=== PATIENT | female | born 1975 | race Caucasian/White ===

== ENCOUNTER → 2017-01-30 | Outpatient (CLI) | payer BC | LOC: MC.RAD 01-23 07:30 | DX: N63 Unspecified lump in breast (principal) ==

== ENCOUNTER → 2019-01-14 | Outpatient (CLI) | payer BC | LOC: COL.RAD 14:03 | DX: E04.9 Nontoxic goiter, unspecified (principal) ==

== ENCOUNTER → 2019-12-21 | Outpatient (CLI) | payer BC | LOC: MC.RAD 11:42 | DX: Z12.31 Encounter for screening mammogram for malignant neoplasm of breast (principal) ==

== ENCOUNTER → 2022-02-26 | Outpatient (CLI) | payer BC | LOC: MC.RAD 08:22 | DX: Z12.31 Encounter for screening mammogram for malignant neoplasm of breast (principal); N60.12 Diffuse cystic mastopathy of left breast; N60.11 Diffuse cystic mastopathy of right breast ==

== ENCOUNTER → 2022-02-28 | Outpatient (CLI) | payer BC | LOC: MC.RAD 08:30 | DX: N60.11 Diffuse cystic mastopathy of right breast (principal); N60.12 Diffuse cystic mastopathy of left breast; N60.02 Solitary cyst of left breast ==

== ENCOUNTER → 2022-03-26 | Outpatient (CLI) | payer BC | LOC: MC.RAD 07:59 | DX: N60.02 Solitary cyst of left breast (principal); N64.9 Disorder of breast, unspecified ==